=== PATIENT | female | born 1945 | race African-American/Black ===

== ENCOUNTER 2019-10-01 11:07 | Outpatient (RCR) | payer MEDICARE, SELFPAY ==
[2019-10-01 11:10] VITALS: BMI 35.9
== END 2019-12-23 11:35 | disposition home or self-care (01) ==
LOC: ANHDMC 11:07
PROVIDERS: PCP Family Medicine; Visit Provider Family Medicine
DX: E11.65 Type 2 diabetes mellitus with hyperglycemia (principal); Z79.4 Long term (current) use of insulin; Z71.3 Dietary counseling and surveillance
CPT/HCPCS: 97802

== ENCOUNTER 2020-05-28 11:21 | Outpatient (CLI) | payer MEDICARE, MEDICAID, SELFPAY ==
--- NOTE | ~2020-05-28 | CT_ITS ---
EXAMINATION: CT sinus wo con DATE: 05/28/2020 11:50 INDICATION: Sinus pain TECHNIQUE: Computed tomography (CT) of the paranasal sinuses was performed without intravenous contra st. The dose-length product (DLP) was 277.13 mGy-cm. Iterative reconstruction was used. COMPARISON: None FINDINGS: There is normal development and pneumatization of the paranasal sinuses. There is moderate opacification of the left maxillary sinus. Minimal opacification is noted in the right maxillary sinu s with posterior mucosal thickening as well as a 5 mm polyp or mucous retention cyst seen in the medi al aspect of the right maxillary sinus. There is mild mucosal thickening of the ethmoidal air cells. The sphenoid and frontal sinuses are clear. There are changes of bilateral antrostomy procedure. Visu alized soft tissues are unremarkable. Intracranial calcified cerebral atherosclerosis is noted. IMPRESSION: 1. Maxillary sinus predominant sinus disease as detailed above. Reviewed, dictated and finalized at location A. ERS COMPENSATION COORDINATOR
== END 2020-05-28 11:22 | disposition home or self-care (01) ==
PROVIDERS: PCP Family Medicine; Visit Provider Otolaryngology
DX: R44.8 Other symptoms and signs involving general sensations and perceptions (principal); J32.9 Chronic sinusitis, unspecified; R51.9 Headache, unspecified
CPT/HCPCS: 70486

== ENCOUNTER → 2020-07-07 03:41 | Outpatient (CLI) | payer MEDICARE, MEDICAID, SELFPAY ==
[2020-07-07 20:31] LABS: SARS-CoV-2 RNA PCR Negative
== END ==
PROVIDERS: PCP Family Medicine; Visit Provider Otolaryngology
DX: Z01.812 Encounter for preprocedural laboratory examination (principal); Z20.822 Contact with and (suspected) exposure to COVID-19
CPT/HCPCS: C9803; U0003; U0005

== ENCOUNTER 2020-07-07 09:06 | Outpatient (CLI) | payer MEDICARE, MEDICAID, SELFPAY ==
--- NOTE | 2020-07-07 09:14 | ECG_ITS ---
Measurements Intervals [place] Rate: 71 P: 21 NE: 197 QRS: -50 QRSD: 105 T: -55 QT: 420 QTc: 457 Interpretive Statements SINUS RHYTHM LEFT ANTERIOR FASCICULAR BLOCK VOLTAGE CRITERIA FOR LVH BORDERLINE T WAVE ABNORMALITY- INF/HIGH LAT LEADS BASELINE ARTIFACT- I, II, AVR, AVL ABNORMAL ECG Electronically Signed On 07-07-2020 9:55:54 CDT by Renato Keenan D.O.
[2020-07-07 10:17] LABS: Anion Gap 8 mmol/L (8-16); Blood Urea Nitrogen 9 mg/dL (7-17); Calcium 9.6 mg/dL (8.4-10.2); Carbon Dioxide 32 mmol/L (22-30); Chloride 104 mmol/L (98-107); Estimated Glomerular Filt Rate > 60; Glucose 170 mg/dL (65-105); Potassium 3.3 mmol/L (3.4-5.0); Sodium 144 mmol/L (137-145)
== END 2020-07-07 09:07 | disposition home or self-care (01) ==
LOC: ANHSURGERY 09:10
PROVIDERS: Anesthesiology; PCP Family Medicine; Visit Provider Otolaryngology
DX: I10 Essential (primary) hypertension (principal); E11.9 Type 2 diabetes mellitus without complications; Z01.818 Encounter for other preprocedural examination; I44.4 Left anterior fascicular block
CPT/HCPCS: 36415; 80048; 93005

== ENCOUNTER 2020-07-10 01:54 | Day surgery (SDC) | payer MEDICARE, MEDICAID, SELFPAY ==
[2020-07-02 13:47] VITALS: BMI 37.7
--- NOTE | 2020-07-09 09:32 | PM.IMHP ---
H&P: HPI History of Present Illness Date/Time: 07/09/20 09:32 75-year-old female presents with recurrent left-sided maxillary sinusitis. Imaging demonstrates largely occluded outflow from the previous antrostomy on the left. Patient presents for left-sided maxillary revision antrostomy endoscopically. Patient reports no changes in her symptoms or medical history. Chief Complaint: Sinusitis, left maxillary sinusitis, chronic sinusitis, facial pressure, facial pain Review of Systems Constitutional: Constitutional: Denies fatigue, Denies fever(s) and Denies lethargy Eyes: Eyes: Denies blurry vision and Denies change in vision ENT: Reports as per HPI Cardiovascular: Cardiovascular: Denies chest pain Respiratory: Respiratory: Denies cough Endocrine: Endocrine: Denies fatigue Hematologic/Lymphatic: Hematologic/Lymphatic: Denies easy bleeding, Denies easy bruising and Denies lymphadenopathy Allergic/Immunologic: Allergic/Immunologic: Denies seasonal rhinorrhea PMFSH Social History Social History Smoking packs per day: 1 Smoking cigarettes per day: 20.0 Years smoked: 20 Smoking pack-years: 20.00 Smoking status: Current every day smoker Tobacco type: cigarettes Second hand tobacco smoke exposure: No Spiritual care concerns: No Meds Home Medications and Allergies Home Medications Medication Instructions Recorded Confirmed Type amlodipine 10 mg tablet 10 mg PO DAILY 09/26/19 07/02/20 History docusate sodium 100 mg capsule 100 mg PO BID 09/26/19 07/02/20 History enalapril maleate 20 mg tablet 20 mg PO BID 09/26/19 07/02/20 History insulin lispro 100 unit/mL See Rx Instructions .ROUTE .COMPLEX 09/26/19 07/02/20 History subcutaneous pen acetaminophen 325 mg capsule 500 mg PO BID PRN 12/31/19 07/02/20 History amoxicillin 875 mg-potassium See Rx Instructions .ROUTE 06/29/20 07/02/20 Rx clavulanate 125 mg tablet .COMPLEX #14 tablet azelastine 1 spray INTRANASAL Q12H PRN 07/02/20 07/02/20 History cholecalciferol (vitamin D3) 25 mcg PO DAILY 07/02/20 07/02/20 History famotidine 20 mg PO DAILY 07/02/20 07/02/20 History fexofenadine [Yamila] 180 mg PO DAILY 07/02/20 07/02/20 History guaifenesin [Mucinex] 600 mg PO BID 07/02/20 07/02/20 History mometasone [Nasonex] 2 spray INTRANASAL DAILY 07/02/20 07/02/20 History pqfkzbdvmqqa-rhj-lbrp-FA-vit K 1 tablet PO DAILY 07/02/20 07/02/20 History [Adults Multivitamin] rosuvastatin 10 mg PO 2XW 07/02/20 07/02/20 History tafluprost (PF) [Zioptan (PF)] 1 drp EACH EYE HS 07/02/20 07/02/20 History Allergies Allergy/AdvReac Type Severity Reaction Status Date / Time azithromycin [From Zithromax] Allergy Mild LIP Verified 07/02/20 13:14 SWELLING levofloxacin Allergy Mild LIP Verified 07/02/20 13:14 SWELLING /TROUBLE BREATHING Sulfa (Sulfonamide Allergy Mild unknown Verified 07/02/20 13:14 Antibiotics) tetracycline Allergy Mild WARTS Verified 07/02/20 13:14 AVALOX Allergy Mild SEVERE Uncoded 07/02/20 13:14 WEAKNESS Exam Const: General: cooperative, healthy appearing, comfortable, well developed and alert HENMT: Head: normal to inspection, normocephalic and atraumatic Ears: hearing grossly normal bilaterally, external ears normal, TM's normal bilaterally and EAC's normal General nose exam: Normal external nose present, Normal nares present, No nasal polyps present, Normal nasal mucous membranes and turbinates present and Normal septum present Face and sinus: normal facial exam Mouth: Yes Normal oral and palatal mucosa present, Yes lip normal, Yes tongue normal, Yes oropharynx normal and Yes moist mucous membranes Teeth and gingiva: dentition normal and gingiva normal Throat: posterior oropharynx normal, tonsils normal and uvula midline Eyes: General: appearance normal, both eyes and all related structures Periorbital: periorbital findings normal Eyelids: eyelids normal Conjunc
[2020-07-10] VITALS (9 sets, daily range): BP systolic 160–196; BP diastolic 83–99; PULSE 65–93; RESP 18–24; TEMP 36.1–37.5; O2SAT 92–100
--- NOTE | 2020-07-10 07:07 | WPDHPUPDATE1 ---
History and Physical Update Update Date/Time: 07/10/20 07:07 History and Physical has been reviewed, including an updated exam of the patient. There are NO changes in the patient's condition. Risks, benefits, and alternatives have been discussed and questions answered. Patient agrees to proceed with procedure.
[2020-07-10] MEDS: ACETAMINOPHEN 500 MG TABLET 1000 MG PO (07:19)
[2020-07-10] MEDS: LACTATED RINGERS 1,000 ML 30 ML IV CONT ×2 (07:19→09:33)
[2020-07-10 07:27] LABS: Glucose Point of Care 147 (65-105)
--- NOTE | 2020-07-10 07:53 | WPDANESEPPF ---
Anes - Initial Pre Proc Eval Procedure: Operation Date: 07/10/20 08:30 Proposed Procedures p Endoscopic Left Maxillary Antrostomy - Pieter Chatman MD Date/Time: 07/10/20 07:53 Surgeon: Pieter Chatman MD Pre Op Diagnosis: Chronic Sinusitis Patient Data Age: 75 Gender: F Height: 4 ft 11.5 in Weight: 86.2 kg Last Vital Signs Temp 37.5 C 07/10/20 07:26 Pulse 87 07/10/20 07:26 Resp 18 07/10/20 07:26 BP 180/92 H 07/10/20 07:26 Pulse Ox 92 07/10/20 07:26 Allergies Allergy/AdvReac Type Severity Reaction Status Date / Time azithromycin [From Zithromax] Allergy Mild LIP Verified 07/10/20 06:42 SWELLING levofloxacin Allergy Mild LIP Verified 07/10/20 06:42 SWELLING /TROUBLE BREATHING Sulfa (Sulfonamide Allergy Mild unknown Verified 07/10/20 06:42 Antibiotics) tetracycline Allergy Mild WARTS Verified 07/10/20 06:42 AVALOX Allergy Mild SEVERE Uncoded 07/10/20 06:42 WEAKNESS Home Medications Medication Instructions Recorded Confirmed Type amlodipine 10 mg tablet 10 mg PO DAILY 09/26/19 07/10/20 History docusate sodium 100 mg capsule 100 mg PO BID 09/26/19 07/10/20 History enalapril maleate 20 mg tablet 20 mg PO BID 09/26/19 07/10/20 History insulin lispro 100 unit/mL See Rx Instructions .ROUTE .COMPLEX 09/26/19 07/10/20 History subcutaneous pen acetaminophen 325 mg capsule 500 mg PO BID PRN 12/31/19 07/10/20 History azelastine 1 spray INTRANASAL Q12H PRN 07/02/20 07/10/20 History cholecalciferol (vitamin D3) 25 mcg PO DAILY 07/02/20 07/10/20 History famotidine 20 mg PO DAILY 07/02/20 07/10/20 History fexofenadine [Yamila] 180 mg PO DAILY 07/02/20 07/10/20 History guaifenesin [Mucinex] 600 mg PO BID 07/02/20 07/10/20 History mometasone [Nasonex] 2 spray INTRANASAL DAILY 07/02/20 07/10/20 History ojpheaqpoexo-qxl-ynld-FA-vit K 1 tablet PO DAILY 07/02/20 07/10/20 History [Adults Multivitamin] rosuvastatin 10 mg PO 2XW 07/02/20 07/10/20 History tafluprost (PF) [Zioptan (PF)] 1 drp EACH EYE HS 07/02/20 07/10/20 History Laboratory Tests 07/10/20 07:24 POC Capillary Glucose 147 mg/dl H mg/dl (65-105) Patient hx anesthesia problems: none Family hx anesthesia problems: none PMFSH Past Medical History Medical History Diabetes HTN (hypertension) Hyperlipidemia Obesity Surgical History Surgical History (Updated 07/10/20 @ 07:58 by Wagner Quiñonez MD) H/O cervical spine surgery H/O sinus surgery H/O: hysterectomy Social History Social History Smoking packs per day: 1 Smoking cigarettes per day: 20.0 Years smoked: 20 Smoking pack-years: 20.00 Smoking status: Current every day smoker Tobacco type: cigarettes Second hand tobacco smoke exposure: No Living arrangements: alone Spiritual care concerns: No Anes - Eval Final PreProcedure Day of Procedure 07/10/20 07:53 Patient weight: obese Heart: regular rate and rhythm Lungs: clear to auscultation Airway: Mallampati scale class II Neurological: alert and oriented Last oral intake: >/= 8 hours ASA classification: III Emergent: no Anesthetic plan: proceed Anesthesia type and monitoring: general ETT and standard monitoring Informed Consent: The patient's anesthetic plan and its attendant risks and benefits were discussed with the patient/family/POA. Questions were solicited and answers provided to the satisfaction of the patient/family/POA.
[2020-07-10] MEDS: OXYMETAZOLINE HCL 0.05% NAS 15 ML BTL (*BKC) 1 SPRAY NASAL (08:11)
[2020-07-10] MEDS: ceFAZolin 2 GM/D5W 50 ML 2 GM/50 ML BAG IVPB (08:11)
[2020-07-10] MEDS: LIDO 1%/EPINEPHRINE 1:100,000 50 ML VIAL INFILTRATE (08:12)
--- NOTE | 2020-07-10 09:07 | P.OP_ITS ---
Procedure Note - Detailed Date of procedure: 07/10/20 Pre-op diagnosis: Chronic Sinusitis Left maxillary sinusitis Post-op diagnosis: same Procedure performed: 1. Nasal endoscopy 2. Left revision maxillary antrostomy Description of procedure: The patient was correctly identified and consent was verified in the preoperative holding area. The patient was then brought to the operating room and a time-out performed. General anesthesia was induced and endotracheal tube was secured the patient's airway and taped to the left lower lip. The patient was then prepped and draped for the aforementioned procedure. Afrin-soaked pledgets were placed in the left nasal passage and allowed to sit for 5 minutes they were then removed. Under 0 degree endoscopic guidance the left nasal passage was examined. A stenosed maxillary antrostomy was noted. This was greatly widened using a combination of backbiter through cutting forceps. Hemostasis was achieved using the intermittent application of Afrin- soaked pledgets as well as suction Bovie electrocautery at a setting of 10. Following the procedure hemostasis was adequate. I performed all dictated portions procedure. Care the patient was turned over to Anesthesiology. Anesthesia: GETA Surgeon: Pieter Chatman MD Estimated blood loss (mL): 5 Drains: No Packing: No Pathology: none sent Complications: No immediate complications Condition: stable Disposition: PACU Findings: Stenosis of left maxillary antrostomy
[2020-07-10 09:26] LABS: Glucose Point of Care 182 (65-105)
--- NOTE | 2020-07-10 09:39 | SUR.PHASEI ---
O2 removed at 0988
== END 2020-07-10 11:12 | disposition home or self-care (01) ==
PROVIDERS: PCP Family Medicine; Visit Provider Otolaryngology
PROC: (CPT 31256; principal; 2020-07-10 08:30)
DX: J32.0 Chronic maxillary sinusitis (principal); F17.210 Nicotine dependence, cigarettes, uncomplicated; Z79.4 Long term (current) use of insulin; R51.9 Headache, unspecified; R09.81 Nasal congestion; R44.8 Other symptoms and signs involving general sensations and perceptions; E11.9 Type 2 diabetes mellitus without complications; E78.5 Hyperlipidemia, unspecified; E66.9 Obesity, unspecified; Z68.37 Body mass index [BMI] 37.0-37.9, adult
CPT/HCPCS: 31256; 36415; 80048; 82948; 93005; A9270; C9803; J0330; J0690; J1100; J2405; J2704; J3010; J7120; U0003; U0005